=== PATIENT | male | born 1985 | race Caucasian/White ===

== ENCOUNTER 2016-05-16 14:11 | Emergency (ER) | payer SELFPAY ==
[~2016-05-16] VITALS: Ht 177.8 cm; Wt 74.0 kg
[~2016-05-16 14:11] MED LIST: AUGM875T PO; FLUT1SPR9 EACH NARE
[2016-05-16 14:13] VITALS: BP 133/66; PULSE 106; RESP 24; TEMP 98.8; O2SAT 94
--- NOTE | 2016-05-16 14:58 | PD ---
HPI Chief Complaint: Cold / Flu Symptoms Time Seen by Provider: 14:58 Travel History International Travel<30 days: No Contact w/Intl Traveler<30days: No Traveled to known affect area: No History of Present Illness HPI 31-year-old male presents to the emergency Department with complaint of nasal congestion 3 weeks. Onset of sore throat at approximately 5 AM this morning. Reports chills but has not taken his temperature and cannot report a MAXIMUM TEMPERATURE. Afebrile in the ER. Denies lump in throat, difficulty swallowing , unusual drooling. Reports painful swallowing. Reports occasional cough. Reports facial pressure and sinus tenderness. Denies ear pain. Denies chest pain, shortness of breath, airway edema, stridor, wheezing. Has not taken any medications or tried any trauma to the symptoms. No known aggravating or relieving factors. Son is sick with similar symptoms. Allergies to codeine. Reports tobacco use daily. Discussed with primary care provider. No other modifying factors or associated signs and symptoms. PFSH Past Medical History Medical History: Denies Significant Hx Past Surgical History Other Surgery: Yes (SURGERY LAC S/P CUT BY GLASS) Social History Alcohol Use: No Tobacco Use: Yes (cigars) Substance Use: Yes (MARIJUANA) Allergies-Medications (Allergen,Severity, Reaction): Coded Allergies: Codeine (Verified Allergy, Mild, 05/16/16) Reported Meds & Prescriptions Reported Meds & Active Scripts Active Magic Mouthwash Adult Liq (Multi-Ingredient Mouthwash/Gargle) 120 Ml Susp 5 Ml SWISH-SPIT Q3HR PRN Each 5mL contains: Nystatin 200,000units, Diphenhydramine 4.25mg, Viscous Lidocaine 10mg, Flores syrup 0.8 mL Nasonex Nasal [place] (Mometasone Furoate) 50 Mcg/Act Naspr 2 [place] EACH NARE DAILY PRN Amoxicillin 500 Mg Cap 500 Mg PO BID 10 Days Flonase Allergy Relief Children Nasal [place] (Fluticasone Nasal [place]) 50 Mcg/ Act [place] 2 [place] EACH NARE DAILY 50 mcg/spray Augmentin (Amoxicillin-Clavulanate) 875-125 mg Tab 875 Mg PO BID 10 Days not for use in CrCl <30 ml/min. Review of Systems Except as stated in HPI: all other systems reviewed are Neg Physical Exam Narrative GENERAL: Well-nourished, well-developed male patient, in no acute distress; afebrile, nontoxic-appearing SKIN: Warm and dry. No rash. HEAD: Atraumatic. Normocephalic. Frontal and maxillary sinus tenderness on palpation. EYES: Pupils equal and round at 3 mm with brisk reaction. No scleral icterus. No injection or drainage. PERRLA. ENT: Mucosa pink and moist. Oropharynx with erythema; without exudates, tonsillar edema.. No uvular edema. No uvular, palatal, or tonsillar deviation. Airway patent. EARS: Bilateral pinnae and external canals appear within normal limits. Bilateral tympanic membranes without erythema, dullness or perforation. NECK: Trachea midline. No anterior cervical lymphadenopathy; with tenderness to left anterior cervical lymph node, without lymphadenopathy. CARDIOVASCULAR: Regular rate and rhythm. No murmur appreciated. RESPIRATORY: No accessory muscle use. Clear to auscultation. Breath sounds equal bilaterally. GASTROINTESTINAL: Abdomen soft, non-tender, nondistended. Hepatic and splenic margins not palpable. Bowel sounds are active 4 quadrants. MUSCULOSKELETAL: No obvious deformities. No clubbing. No cyanosis. No edema. NEUROLOGICAL: Awake and alert. Oriented 3. No obvious cranial nerve deficits. Motor grossly within normal limits. Normal speech. Moves all extremities. 5/5 strength to all extremities. PSYCHIATRIC: Appropriate mood and affect; insight and judgment normal. Data Data Last Documented VS Vital Signs Date Time Temp Pulse Resp B/P Pulse Ox O2 Delivery O2 Flow Rate FiO2 05/16/16 14:13 98.8 106 24 133/66 94 Room Air MDM Medical Decision Making Medical Screen Exam Complete: Yes Emergency Medical Condition: Yes Medical Record Reviewed: Yes Differential Diagnosis Viral pharyngitis, sinusitis, strep pharyngitis, less likely peritonsillar abscess Narrative Course 31-year-old male physical exam consistent with sinusitis. Patient is afebrile and nontoxic-appearing. Patient reports chills but cannot report a MAXIMUM TEMPERATURE He has not taken his temperature at home. Heart rate recheck on physical exam is approximately 90 bpm. ibuprofen administered in ER. Amoxicillin, Magic mouthwash, Nasonex nasal spray prescribed for home. Patient is medically cleared and stable for discharge. Discussed reasons to return to the emergency department. Instructed patient to follow up with primary care provider. Patient agrees with treatment plan. The patients vital signs are stable and the patient is stable for outpatient follow-up and treatment. Patient discharged home, stable and in no acute distress. Diagnosis Primary Impression: Sinusitis Qualified Code: J32.9 - Sinusitis, unspecified chronicity, unspecified location Referrals: Primary Care Physician Patient Instructions: General Instructions, Sinusitis (ED) Departure Forms: Tests/Procedures, Work Release Enter return to work date: May 17, 2016 Additional Instructions: Take Antibiotics as prescribed and complete full course of antibiotics Get plenty of sleep/rest Rest your voice Drink plenty of fluids to prevent dehydration Use warm saltwater gargles to soothe throat pain Use an air humidifier/turn off ceiling fans Use throat lozenges as needed for sore throat Use ibuprofen or acetaminophen as needed to relieve pain and fever Follow-up with your primary care provider within 2-4 days Return immediately to the emergency department with worsening of symptoms Med/Other Pt SpecificInfo: Prescription(s) given Scripts Smmocfrc-Qdycwmutjitltgp-Ohdjforwh Liq (Magic Mouthwash Adult Liq)120 Ml Susp5 Ml SWISH-SPIT Q3HR PRN (SORE THROAT) #120 ML Ref 0 Each 5mL contains: Nystatin 200,000units, Diphenhydramine 4.25mg, Viscous Lidocaine 10mg, Flores syrup 0.8 mL Prov:Tasha Yates 05/16/16 Mometasone Nasal [place] (Nasonex Nasal [place])50 Mcg/Act Naspr2 [place] EACH NARE DAILY PRN (NASAL CONGESTION) #1 BOTTLE Ref 0 Prov:Tasha Yates 05/16/16 Amoxicillin 500 Mg [id number] Mg PO BID 10 Days Ref 0 Prov:Tasha Yates 05/16/16 Disposition: 01 DISCHARGE HOME Condition: Stable Tasha Yates May 16, 2016 14:58
[2016-05-16] MEDS ORDERED: MOME17I EACH NARE (15:03)
[2016-05-16] MEDS ORDERED: AMOX500C PO (15:03)
[2016-05-16] MEDS ORDERED: MAGICADU2 SWISH-SPIT (15:04)
[2016-05-16] MEDS ORDERED: IBUPROFEN 800 MG TAB PO ONE (15:15)
== END 2016-05-16 15:12 | disposition home or self-care (01) ==
LOC: NEPB 14:11
DX: J32.9 Chronic sinusitis, unspecified (principal); R07.0 Pain in throat; R13.10 Dysphagia, unspecified; R05 Cough; Z72.0 Tobacco use
CPT/HCPCS: 99283